=== PATIENT | male | born 1985 | race Caucasian/White ===

== ENCOUNTER 2017-04-24 11:34 | Emergency (ER) | payer OTHER ==
[~2017-04-24] VITALS: Ht 175.3 cm; Wt 81.7 kg
[2017-04-24 11:36] VITALS: BP 130/88
[2017-04-24] MEDS ORDERED: KEFLEX500 MG PO (12:47)
[2017-04-24] MEDS ORDERED: MOBIC15 MG PO (12:47)
== END 2017-04-24 13:20 | disposition home or self-care (01) ==
LOC: ER 11:34
DX: S61.411A Laceration without foreign body of right hand, initial encounter (principal); W45.8XXA Other foreign body or object entering through skin, initial encounter; Y93.89 Activity, other specified; Y92.89 Other specified places as the place of occurrence of the external cause; Y99.8 Other external cause status